=== PATIENT | male | born 1960 | race Caucasian/White ===

== ENCOUNTER 2017-09-18 13:34 | Emergency (ER) | payer SELFPAY ==
[2017-09-18 13:44] LABS: BASOPHIL (%) 0.8 % (0-1); BASOPHIL COUNT 0.1 K/uL (0-0.1); EOSINOPHIL (%) 1.1 % (0-5); EOSINOPHIL COUNT 0.1 K/uL (0-0.3); HEMATOCRIT 42.3 % (38.0-50.0); HEMOGLOBIN 14.8 G/DL (12.5-16.6); IMMATURE GRANULOCYTE (%) 0.3 % (0.0-0.7); LYMPHOCYTE (%) 20.4 % (15-42); LYMPHOCYTE COUNT 1.8 K/uL (1.0-2.8); MCH 31.6 PG (29.0-34.0); MCV 90.4 FL (86-99); MONOCYTE (%) 6.2 % (3-12); MONOCYTE COUNT 0.5 K/uL (0-0.8); NEUTROPHIL (%) 71.2 % (45-76); NEUTROPHIL COUNT 6.2 K/uL (1.8-6.4); PLATELET COUNT 177 K/uL (156-360); RBC DIS.WIDTH-CV 12.6 % (11.8-14.6); RBC DIS.WIDTH-SD 41.5 % (39-53); RED BLOOD COUNT 4.68 M/uL (4.00-5.50); WHITE BLOOD COUNT 8.7 K/uL (4.1-10.2)
[2017-09-18 13:51] LABS: AMYLASE 63 IU/L (1-118); CHLORIDE 107 mEq/L (99-109); POTASSIUM 3.9 mEq/L (3.7-5.4); SODIUM 140 mEq/L (136-147)
[2017-09-18 13:53] LABS: GLUCOSE 110 mg/dL (70-99)
[2017-09-18 13:56] LABS: SERUM ETHYL ALCOHOL < 10 mg/dL
[2017-09-18 13:58] LABS: UREA NITROGEN (BUN) 22 mg/dL (9-23)
[2017-09-18 14:00] LABS: LIPASE 76 U/L (1.0-51.0)
[2017-09-18 14:01] LABS: GFR ESTIMATE (CALCULATED) > 59 mL/min/ (58.99-99999)
== END 2017-09-18 16:01 | disposition short-term general hospital (02) ==
LOC: TRA 13:34
PROVIDERS: Emergency Medicine
DX: S52.502B Unspecified fracture of the lower end of left radius, initial encounter for open fracture type I or II (principal); S52.612B Displaced fracture of left ulna styloid process, initial encounter for open fracture type I or II; S52.501A Unspecified fracture of the lower end of right radius, initial encounter for closed fracture; S52.611A Displaced fracture of right ulna styloid process, initial encounter for closed fracture; S92.001A Unspecified fracture of right calcaneus, initial encounter for closed fracture; W11.XXXA Fall on and from ladder, initial encounter; Z79.82 Long term (current) use of aspirin
CPT/HCPCS: 71045; 73070; 73090; 73100; 73600; 73630; 80048; 81003; 82150; 83690; 85025; 86850; 86900; 86901; 93005; 99281; 99285; G0480; J3010